=== PATIENT | female | born 1950 | race Two or more races ===

== ENCOUNTER 2020-05-11 13:12 | Inpatient (IN) | payer OTHER ==
[~2020-05-11] VITALS: Ht 157.5 cm; Wt 67.1 kg
[2020-05-22] MEDS ORDERED: INDOCIN PO (11:21)
[2020-05-22] MEDS ORDERED: INDERAL LA80 MG PO (12:51)
[2020-06-03] MEDS ORDERED: KEFLEX500 MG PO (08:05)
[2020-06-03] MEDS ORDERED: ULTRAM50 MG PO (08:05)
[2020-06-03] MEDS ORDERED: MIRALAX17 GM PO (08:05)
[2020-06-03] MEDS ORDERED: TYLENOL ARTHRI650 MG PO (08:05)
== END 2020-06-03 10:01 | disposition home or self-care (01) | DRG 355 ==
LOC: SURH 05-31 09:30 → O/R 05-31 11:55 → SURG 05-31 11:55
PROVIDERS: ADMIT Surgery; ATTEND Surgery
PROC: 0WJF4ZZ Inspection of Abdominal Wall, Percutaneous Endoscopic Approach (ICD-10-PCS; 2020-05-31)
PROC: 0WUF0JZ Supplement Abdominal Wall with Synthetic Substitute, Open Approach (ICD-10-PCS; principal; 2020-05-31 10:00)
DX: K43.0 Incisional hernia with obstruction, without gangrene (principal); K42.0 Umbilical hernia with obstruction, without gangrene; K43.6 Other and unspecified ventral hernia with obstruction, without gangrene